=== PATIENT | female | born 1990 | race Caucasian/White ===

== ENCOUNTER 2017-06-22 11:58 | Day surgery (SDC) | payer OTHER ==
[2017-06-22] MEDS ORDERED: LIDOCAINE 2% (SDV) 5 ML INJ (13:56)
[2017-06-22] MEDS ORDERED: MIDAZOLAM 1 MG/ML 2 ML INJ (13:56)
[2017-06-22] MEDS ORDERED: PROPOFOL 20 ML ×2 (13:56→14:32)
== END 2017-06-22 16:11 | disposition home or self-care (01) ==
LOC: GIL 11:58
DX: K29.50 Unspecified chronic gastritis without bleeding (principal); E66.9 Obesity, unspecified; Z68.32 Body mass index [BMI] 32.0-32.9, adult
CPT/HCPCS: 43239; 84703; 88305; 88312